=== PATIENT | female | born 1960 | race Caucasian/White ===

== ENCOUNTER 2024-08-03 12:38 | Emergency (ER) | payer OTHER, SELFPAY ==
[2024-08-03 12:50] VITALS: BP 150/88
[2024-08-03 14:00] VITALS: BP 142/78
--- NOTE | 2024-08-03 14:54 | ED.GENMED ---
History of Present Illness
<Elvis Mejias PA-C - Last Filed: 08/03/24 17:28>
General
Chief Complaint: Alcohol Problem
Source: patient and family
Time Seen by Provider: 08/03/24 14:06
History of Present Illness
History of Present Illness:
63-year-old female with past medical history of hypertension, depression, chronic alcohol use presenting to the emergency department to be evaluated and hopefully placed for inpatient rehab for her alcohol use. Last drink around 11 AM. Patient
notes that she had previously been living with her mother but mother recently had to sell her house to go to an assisted living facility and patient is now currently homeless. She notes drinking 1/5 of 99 bananas and wine daily. No history of
alcohol withdrawal seizure but aunt notes patient was admitted multiple times this year at [facility] for acute alcohol intoxication. Patient without any other physical concerns at this time and states she feels as if she is in her
usual state of health.
Past History
<Evlis Mejias PA-C - Last Filed: 08/03/24 17:28>
Past History
ED Past Medical History: Other (Fe+ deficiency anemia) and Other (celiac sprue)
ED Past Surgical History: Other (S/P Gastric Bypass surgery 3 years ago)
Social History
Tobacco: Smoker
Alcohol: Chronic alcoholic
Drug: None
Personal:
Living: homeless
Employment: Employed
Review of Systems
<Elvis Mejias PA-C - Last Filed: 08/03/24 17:28>
Review of Systems
All Other Systems: ROS reviewed and negative except as documented in HPI and ROS
Phy Exam
<Elvis Mejias PA-C - Last Filed: 08/03/24 17:28>
Physical Exam
Physical Exam:
GENERAL: Alert , in no apparent distress
EYE: conjunctiva clear
NECK: Supple
ENT: o/p clr, mmm.
CARDIAC: Regular rate and rhythm
LUNGS: Clear breath sounds bilaterally, no acute respiratory distress, no wheezes/rales/rhonchi
NEUROLOGICAL: Alert and oriented
SKIN: Warm and dry, skin intact.
MUSCULOSKELETAL: well perfused.
PSYCH: Normal and appropriate interaction.
Scores
<Elvis Mejias PA-C - Last Filed: 08/03/24 17:28>
Heart Failure Risk
Heart Failure Risk Score: Not Applicable
Heart Score for Chest Pain Patients
STEMI patient?: Not applicable
Withdrawal Assessment of Alcohol
Withdrawal Assessment Completed?: Not applicable
Course
<Elvis Mejias PA-C - Last Filed: 08/03/24 17:28>
Orders/Labs/Results
Orders:
Orders
08/03/24 14:27
Case Management Consult ONCE
Case Management Consult: Discharge Planning
Vital Signs
Initial and Last Documented VS:
Initial Vital Signs
Temp Pulse Resp BP Pulse Ox
97.8 F 85 18 150/88 99
08/03/24 12:50 08/03/24 12:50 08/03/24 12:50 08/03/24 12:50 08/03/24 12:50
Last Documented Vital Signs
Temp Pulse Resp BP Pulse Ox
98 F 84 16 137/67 98
08/03/24 16:31 08/03/24 16:31 08/03/24 16:31 08/03/24 16:31 08/03/24 16:31
<Zhane Bahena MD - Last Filed: 08/03/24 15:16>
Orders/Labs/Results
Orders:
Orders
08/03/24 14:27
Case Management Consult ONCE
Case Management Consult: Discharge Planning
Vital Signs
Initial and Last Documented VS:
Initial Vital Signs
Temp Pulse Resp BP Pulse Ox
97.8 F 85 18 150/88 99
08/03/24 12:50 08/03/24 12:50 08/03/24 12:50 08/03/24 12:50 08/03/24 12:50
Last Documented Vital Signs
Temp Pulse Resp BP Pulse Ox
98 F 84 16 137/67 98
08/03/24 16:31 08/03/24 16:31 08/03/24 16:31 08/03/24 16:31 08/03/24 16:31
<Elvis Mejias PA-C - Last Filed: 08/03/24 17:28>
MDM/Problems Addressed
Differential Diagnosis Includes:
Chronic alcoholic, no current symptoms to suggest acute alcohol withdrawal, homelessness
MDM/Problems Addressed:
63-year-old female presenting to the ER for evaluation of chronic alcoholism, hoping to go inpatient for further treatment. Secondary concern of having nowhere to live. Will contact [facility] to help with possible inpatient rehab placement. Case
management also made aware to help facilitate any potential outpatient based resources for the patient given her new homelessness status.
Chronic conditions affecting care: Psychiatric illness (Chronic alcohol)
<Elvis Mejias PA-C - Last Filed: 08/03/24 17:28>
*Pulse Oximetry
Patient hypoxic: no
*Critical Care Note
Total Time (30-74mins, 75-104mins- exclusive of procedures): Not Applicable
<Elvis Mejias PA-C - Last Filed: 08/03/24 17:28>
Patient Management
Escalation/DeEscalation of care consider admission/obs:
Patient accepted at [facility] for inpatient rehab due to her alcohol abuse. They were able to arrange for Uber to pick the patient up from the hospital and take her to [facility]. Patient feels comfortable with this plan. Stable for
discharge.
ED Attending Note
<Elvis Mejias PA-C - Last Filed: 08/03/24 17:28>
-
Portions of this chart may have been created with voice recognition software.� Occasional wrong word or��sound alike� substitutions may have occurred due to the inherent limitations of voice recognition software.
<Zhane Bahena MD - Last Filed: 08/03/24 15:16>
ED Attending Note
Patient seen and examined by attending physician: Yes
I performed the substantive portion of visit, reviewed & personally made and approve the management plan that is documented in note by myself or HILL.: Yes
ED Attending Note:
The patient remains calm and cooperative. She denies tremor, chest pain, shortness of breath, nausea, vomiting and headache. Patient admits to chronic alcohol use and homelessness. She is interested in rehab for alcohol use and inpatient rehab,
there is no sign of active alcohol withdrawal
Discharge Plan
Departure
Patient Disposition: Other
Date of Disposition: 08/03/24
Time of Disposition: 15:58
Patient with high blood pressure during this ER visit?: Yes
Discharge Problem:
Chronic alcohol abuse
Instructions: Alcohol Use Disorder (DC)
Prescriptions:
No Action
ferrous sulfate 325 MG tablet
325 mg PO TID
Patient Comments:
pt reports she is suppose to take 3-4 x's a day but usually only takes tid
multivitamin 1 EACH capsule
1 ea PO DAILY
sertraline 50 MG tablet
50 mg PO DAILY
loratadine 10 MG tablet
10 mg PO DAILY
Patient Comments:
has been taking routinely since the Fall
Tylenol
650 mg PO PRN PRN (Reason: didn't feel good)
Referrals:
NONE,* [Family Provider] -
Interventions
Interventions:
*Risk Screen - Suicide Last Done: 08/03/24 12:54
*General Assessment Last Done: 08/03/24 12:54
*Neglect/Abuse Screening Last Done: 08/03/24 12:54
*ED- Fall Risk Assessment Last Done: 08/03/24 13:08
*ED COVID-19 Vaccine History Last Done: 08/03/24 12:54
*Nursing Disposition Last Done: 08/03/24 16:31
ED- Neurological Assessment Last Done: 08/03/24 13:08
ED-Psychological Assessment Last Done: 08/03/24 13:08
Discharge Date and Time
Discharge Date/Time: 08/03/24 16:34
Print Language: DJIBOUTIAN
--- NOTE | 2024-08-03 14:58 | CM ---
Addendum entered by Rina Muse 08/03/24 16:03:
Pt accepted at [facility] for inpt D/A
[facility] has arranged for [facility] transport
Original Note:
ED CM consult for dc planning
Bedside meeting with pt
Pt is now homeless, she [place] her [place] the [place]
Mother is a resident at [facility] now
Pt notes she has no income stream, has applied for SS benefits and awaiting approval
Pt receives SNAP benefits
Has been staying a local [place] but money has run out
Pt has local aunt but notes she is not able to stay with her as she doesn't want to bother her
Pt notes long hx of alcoholism, drinks a fifth of Banana 99 daily
Denies hx with inpt tx
Pt requesting inpt D/A tx be arranged for her
CM also provided pt with list of homeless resources
Call with [facility]
Bed likely available ay [facility]
Clinicals faxed to them at [phone]
Awaiting inpt D/A placement
[2024-08-03 16:31] VITALS: BP 137/67
== END 2024-08-03 16:34 ==
LOC: EMR 12:38
PROVIDERS: EMERGENCY PHYSICIAN Emergency Medicine
DX: F10.20 Alcohol dependence, uncomplicated (principal); I10 Essential (primary) hypertension; F17.200 Nicotine dependence, unspecified, uncomplicated; Z59.00 Homelessness unspecified; Z98.84 Bariatric surgery status
CPT/HCPCS: 99285